=== PATIENT | male | born 1985 | race Caucasian/White ===

== ENCOUNTER 2017-07-16 05:37 | Emergency (ER) | payer MEDICAID ==
[~2017-07-16] VITALS: Ht 170.2 cm; Wt 97.2 kg
[2017-07-16 05:41] VITALS: Ht 170.2 cm; Wt 97.2 kg
[2017-07-16 06:33] VITALS: BP 128/73
== END 2017-07-16 06:33 | disposition home or self-care (01) ==
LOC: ED 05:37
DX: B34.9 Viral infection, unspecified (principal)
CPT/HCPCS: J1885; Q0092

== ENCOUNTER 2019-01-18 10:06 | Emergency (ER) | payer MEDICAID ==
[~2019-01-18] VITALS: Ht 170.2 cm; Wt 98.6 kg
[2019-01-18 10:16] VITALS: BP 122/77; Ht 170.2 cm; Wt 98.6 kg
== END 2019-01-18 10:51 | disposition home or self-care (01) ==
LOC: ED 10:06
DX: R51 Headache (principal)